=== PATIENT | male | born 1940 | race Caucasian/White ===

== ENCOUNTER → 2020-06-15 11:37 | Outpatient (BNVA) | payer MEDICARE, SELFPAY | PROVIDERS: PCP Family Medicine; Visit Provider Urology | DX: N40.1 Benign prostatic hyperplasia with lower urinary tract symptoms (principal); R97.20 Elevated prostate specific antigen [PSA] | CPT/HCPCS: 99212 ==

== ENCOUNTER → 2022-01-27 13:15 | Outpatient (BNVA) | payer MEDICARE, SELFPAY | PROVIDERS: PCP Family Medicine; Visit Provider Urology | DX: N40.1 Benign prostatic hyperplasia with lower urinary tract symptoms (principal); N13.8 Other obstructive and reflux uropathy; R97.20 Elevated prostate specific antigen [PSA]; Z79.899 Other long term (current) drug therapy | CPT/HCPCS: Q3014 ==

== ENCOUNTER 2023-01-26 08:47 | Outpatient (AMB) | payer MEDICARE, SELFPAY ==
--- NOTE | 2023-01-26 08:48 | A.OFFVIS_ITS ---
Intake Intake Visit Reasons: 1Y PSA(set) Intake Note: Patient is Present for Telephone Follow Up Urology Med: Finasteride Antibiotic Allergy: None Blood Thinner: None Allergies morphine Allergy (Unknown, Verified 01/26/23 08:49) Unknown Medication List - Last Reconciled 01/26/23 by Rob Benton MD albuterol sulfate 90 mcg/actuation 0 mcg inhalation amlodipine 5 mg PO DAILY finasteride 5 mg PO DAILY 90 days isosorbide mononitrate ER 60 mg PO DAILY losartan 50 mg PO DAILY metoprolol tartrate 50 mg PO BID rosuvastatin 40 mg PO DAILY HPI HPI Comments History of Present Illness Details Severino LARSON is a very pleasant male. They are a patient of Dr Cunningham. They are seen in the office today for the following urologic conditions. - elevated PSA - BPH Telemedicine Evaluation 15 min Consultation [facility] Video attempted Effective emptying Nocturia 2-3 x Will switch finasteride to every other day Twelve month follow-up Elevated PSA/Abnormal BARB: Longstanding large prostate Elevated PSA PSA dropped significantly with finasteride Less nocturia, better bladder emptying. He presents for further evaluation of elevated PSA. Current management is observation. Laboratory investigations include 11/23 PSA 5.2, 06/24 PSA 2.2, 12/27 2.6, 12/28 2.8 Individualized Prostate Cancer Risk Calculator 5-10% high risk. Symptoms include Has some weakness of stream. Therapeutic plan will be continue - finasteride PSA [facility] Medical History Malignant tumor of thyroid gland Hypothyroidism Hyperlipidemia Benign prostatic hyperplasia with lower urinary tract symptoms Feeling of incomplete bladder emptying Elevated PSA Surgical History History of surgery Review of Systems Const All systems reviewed & are unremarkable except as noted in HPI and below Reports no additional complaints Resp Reports no additional complaints GI Reports no additional complaints Reports as per HPI Musc Reports no additional complaints Physical Exam Telemedicine evaluation Appropriate responses Regular breathing rate and rhythm HEENT Head: Yes normal to inspection Ears: hearing grossly normal bilaterally Eyes General: appearance normal, both eyes and all related structures Neck Neck: Yes normal visual inspection Chest Chest palpation & inspection: normal inspection of the chest Resp Effort & Inspection: normal respiratory effort and able to speak in complete sentences Assessment & Plan Assessment & Plan (1) Elevated PSA: Code(s): R97.20 - Elevated prostate specific antigen [PSA] (2) Benign prostatic hyperplasia with lower urinary tract symptoms: Code(s): N40.1 - Benign prostatic hyperplasia with lower urinary tract symptoms Plan Finasteride every other day Orders: Orders Prostate Specific Antigen 364 Days N40.1 - Benign prostatic hyperplasia with lower urinary tract symptoms Medications: Refilled finasteride 5 mg PO DAILY 90 tabs 3RF 90 days N40.1 - Benign prostatic hyperplasia with lower urinary tract symptoms Patient Instructions: Imaging studies, laboratory and physical exam results were discussed and reviewed in detail. No major barriers to patient understanding were identified. An opportunity to ask questions regarding the treatment plan was provided. All questions were answered. The patient expressed understanding and agreement with the above treatment plan. The patient is aware they should contact our office by phone for worsening of their current condition or the appearance of new urologic symptoms. Compliance is encouraged with any medications and followup testing that is ordered. It is a privilege to participate in the urologic care of your patient. If you have any questions or concerns regarding treatment for the above conditions, or other urologic issues, please do not hesitate to contact me. The office telephone contact is [phone]. This note is constructed using voice recognition software. While every effort has been made to ensure accuracy footwear machinery instructor errors may have been included. Yours sincerely, Dr Rob Benton MD, [facility] - Urology Providers of Expert, Compassionate Care for the Genitourinary System Telehealth Telehealth Location of provider rendering services: practice address Location of patient: address on file Patient Identification confirmed using: Name, : Yes Telehealth method: video Patient verbally consented to treatment: Yes Patient verbally consented to billing insurance company: Yes Patient informed of any privacy concerns related to visit: Yes Coding Level of Care Code Tele Est Pt Level 4 (66193) Diagnoses Elevated PSA R97.20 Benign prostatic hyperplasia with lower urinary tract symptoms N40.1
== END 2023-01-26 10:13 | disposition home or self-care (01) ==
LOC: HO.HUSH 08:47
PROVIDERS: PCP Family Medicine; Visit Provider Urology
DX: R97.20 Elevated prostate specific antigen [PSA] (principal); N40.1 Benign prostatic hyperplasia with lower urinary tract symptoms
CPT/HCPCS: 99214

== ENCOUNTER → 2023-01-26 08:47 | Outpatient (BNVA) | payer MEDICARE, SELFPAY | PROVIDERS: PCP Family Medicine; Visit Provider Urology ==

== ENCOUNTER → 2024-03-13 11:09 | Outpatient (BNVA) | payer MEDICARE, SELFPAY | PROVIDERS: PCP Family Medicine; Visit Provider Urology ==